=== PATIENT | male | born 2000 | race Caucasian/White ===

== ENCOUNTER 2020-07-22 12:41 | Emergency (ER) | payer BC | END 2020-07-22 13:48 | disposition home or self-care (01) | LOC: JVIRT 12:41 | DX: Z11.59 Encounter for screening for other viral diseases (principal) | CPT/HCPCS: C9803; G2012-GT; U0003 ==

== ENCOUNTER 2020-07-26 11:27 | Emergency (ER) | payer BC | END 2020-07-26 12:37 | disposition home or self-care (01) | LOC: JVIRT 11:27 | DX: Z03.818 Encounter for observation for suspected exposure to other biological agents ruled out (principal) | CPT/HCPCS: C9803; G2012-GT; U0003 ==

== ENCOUNTER 2023-10-09 15:34 | Emergency (ER) | payer OTHER ==
[2023-10-09 15:48] VITALS: BP 114/75; PULSE 85; RESP 16; TEMP 98.7; BMI 24.4
== END 2023-10-09 17:31 | disposition home or self-care (01) ==
LOC: FER 15:34
DX: R51.9 Headache, unspecified (principal)
CPT/HCPCS: 70551-TC; 99284-25